=== PATIENT | male | born 1980 | race African-American/Black ===

== ENCOUNTER 2020-12-10 16:00 | Outpatient (CLI) | payer BC ==
--- NOTE | 2020-12-10 18:39 | XRAY Report ---
PROCEDURE: Foot 3 View RT INDICATIONS: RIGHT HEEL PAIN TECHNIQUE: 3 views of the foot were acquired. COMPARISON: None. FINDINGS: Bones: No fractures or dislocations. Tiny right plantar calcaneal spur. No suspicious bony lesions. Soft tissues: No tibiotalar joint effusion. Achilles tendon appears normal. IMPRESSION: No fracture. Tiny right plantar calcaneal spur. If clinically indicated consider MRI for further evaluation. Reviewed by: Musa Valle MD on 12/10/2020 6:38 PM PDT Approved by: Musa Valle MD on 12/10/2020 6:38 PM PDT Station ID: [id number]
== END 2020-12-10 16:01 | disposition home or self-care (01) ==
LOC: DI.N 16:00
PROVIDERS: ATTEND Physician Assistant
DX: M77.31 Calcaneal spur, right foot (principal)

== ENCOUNTER 2021-04-10 10:01 | Outpatient (CLI) | payer BC ==
--- NOTE | 2021-04-10 13:22 | XRAY Report ---
PROCEDURE: Ribs w/PA Chest LT INDICATIONS: LEFT RIB PAIN TECHNIQUE: 3 views of the left ribs were acquired, along with a single view chest. COMPARISON: None FINDINGS: Surgical changes and devices: None. Bones and chest wall: No fractures or dislocations. No suspicious bony lesions. Overlying soft tis sues appear unremarkable. Lungs and pleura: No pleural effusions or pneumothorax. Lungs appear clear. Mediastinum: Mediastinal contours appear normal. Heart size is normal. IMPRESSION: No visualized acute fracture or dislocation. However, occult injury cannot be excluded. Recommend zain rt interval imaging follow-up in 7-10 days as clinically indicated for additional evaluation. Reviewed by: Kelly Silveira MD on 04/10/2021 1:20 PM PDT Approved by: Kelly Silveira MD on 04/10/2021 1:20 PM PDT Station ID: [id number]
== END 2021-04-10 23:59 | disposition home or self-care (01) ==
LOC: DI.N 10:01
PROVIDERS: ATTEND Family Medicine
DX: R07.81 Pleurodynia (principal)